=== PATIENT | male | born 1950 | race Caucasian/White ===

== ENCOUNTER 2024-11-25 09:26 | Inpatient (IN) | payer MEDICARE, BC ==
--- NOTE | 2024-11-25 09:53 | ED ---
General Adult HPI - General Chief complaint: Recheck/Abnormal Lab/Rx Stated complaint: elevated BP Time Seen by Provider: 11/25/24 09:30 Source: patient, family, RN notes reviewed, old records reviewed Mode of arrival: ambulatory Limitations: altered mental status - History of Present Illness Initial comments: This is a 73-year-old male who presents to the emergency department stating that he has not seen a doctor in a few years. Patient states he got up this morning felt a little weak and so his took his blood pressure was 250/117 so he decided to come to the emergency department. Patient denies a headache patient denies any numbness or focal weakness. Patient denies chest pain patient denies shortness of breath or difficulty breathing. Patient Nu[place] any recent fever chills or cough. Patient states he has been urinating quite a bit lately which has some concern. Patient also states he felt like he was a little constipated today even though he had a bowel movement yesterday. - Related Data Home Medications Medication Instructions Recorded Confirmed No Known Home Medications 11/25/24 11/25/24 Allergies Allergy/AdvReac Type Severity Reaction Status Date / Time Penicillins Allergy Rash/Hives Verified 11/25/24 10:00 Review of Systems ROS Statement: Those systems with pertinent positive or pertinent negative responses have been documented in the HPI. ROS Other: All systems not noted in ROS Statement are negative. Past Medical History Past Medical History: Hypertension Additional Past Medical History / Comment(s): kidney stones, Past Surgical History: No Surgical Hx Reported Past Psychological History: No Psychological Hx Reported Smoking Status: Never smoker Past Alcohol Use History: None Reported Past Drug Use History: None Reported General Exam - General Exam Comments Initial Comments: GENERAL: Patient is well-developed and well-nourished. Patient is nontoxic and well- hydrated and is in no acute distress. ENT: Neck is soft and supple. No significant lymphadenopathy is noted. Oropharynx is clear. Moist mucous membranes. Neck has full range of motion without eliciting any pain. EYES: The sclera were anicteric and conjunctiva were pink and moist. Extraocular movements were intact and pupils were equal round and reactive to light. Eyelids were unremarkable. PULMONARY: Unlabored respirations. Good breath sounds bilaterally. No audible rales rhonchi or wheezing was noted. CARDIOVASCULAR: There is a regular rate and rhythm without any murmurs gallops or rubs. ABDOMEN: Soft and nontender with normal bowel sounds. SKIN: Skin is clear with no lesions or rashes and otherwise unremarkable. NEUROLOGIC: Patient is alert and oriented x3. Cranial nerves II through XII are grossly intact. Motor and sensory are also intact. Normal speech, volume and content. Symmetrical smile. MUSCULOSKELETAL: Normal extremities with adequate strength and full range of motion. No lower extremity swelling or edema. No calf tenderness. LYMPHATICS: No significant lymphadenopathy is noted PSYCHIATRIC: Normal psychiatric evaluation. Limitations: altered mental status Course Vital Signs 11/25/24 11/25/24 11/25/24 09:30 10:38 10:42 Temperature 97.6 F Pulse Rate 63 75 64 Respiratory 18 18 Rate Blood Pressure 250/124 256/120 O2 Sat by Pulse 98 96 98 Oximetry 11/25/24 11/25/24 11/25/24 10:48 10:58 11:22 Temperature Pulse Rate 63 63 62 Respiratory 18 18 18 Rate Blood Pressure 236/106 248/120 212/97 O2 Sat by Pulse 97 97 96 Oximetry 11/25/24 11/25/24 12:18 12:37 Temperature 97.8 F Pulse Rate 69 Respiratory 18 Rate Blood Pressure 240/134 193/100 O2 Sat by Pulse 99 Oximetry Medical Decision Making - Medical Decision Making EKG is interpreted by myself. EKG shows sinus rhythm at 64 bpm VA interval 199 QRS is 101 QT interval is 426 QTc is 436. Patient's EKG shows no ST segment el evation or depression. Was pt. sent in by a medical professional or institution (, PA, FIRMWARE TEST ENGINEER, urgent care, hospital, or senior living...) When possible be specific @ -No Did you speak to anyone other than the patient for history (EMS, parent, family, police, friend...)? What history was obtained from this source @ -No Did you review nursing and triage notes (agree or disagree)? Why? @ -I reviewed and agree with nursing and triage notes Were old charts reviewed (outside hosp., previous admission, EMS record, old EKG, old radiological studies, urgent care reports/EKG's, senior living records)? Report findings @ -No old charts were reviewed Differential Diagnosis? @ -Differential Weakness: Hypoglycemia, shock, sepsis, hyponatremia, anemia, infection, VT, ETOH, adverse medicine reaction, overdose, stroke, this is not meant to be an all-inclusive list. EKG interpreted by me (3pts min.). @ -As above X-rays interpreted by me (1pt min.). @ -Chest x-ray shows no acute abnormality CT interpreted by me (1pt min.). @ -CT of the abdomen pelvis shows a small kidney stone with some hydronephrosis and hydroureter on the left. U/S interpreted by me (1pt. min.). @ -None done What testing was considered but not performed or refused? (CT, X-rays, U/S, labs)? Why? @ -None What meds were considered but not given or refused? Why? @ -None Did you discuss the management of the patient with other professionals (professionals i.e. , PA, FIRMWARE TEST ENGINEER, lab, RT, psych nurse, social insurance specialist, small arms repairer, teacher, bsa/aml compliance officer, field case manager)? Give summary @ -[facility] the patient wrote admitting orders Was smoking cessation discussed for >3mins.? @ -No Was critical care preformed (if so, how long)? @ -No Were there social determinants of health that impacted care today? How? (Homelessness, low income, unemployed, alcoholism, drug addiction, transportation, low edu. Level, literacy, decrease access to med. care, shelter, rehab)? @ -No Was there de-escalation of care discussed even if they declined (Discuss DNR or withdrawal of care, Hospice)? DNR status @ -No What co-morbidities impacted this encounter? (DM, HTN, Smoking, COPD, CAD, C ancer, CVA, ARF, Chemo, Hep., AIDS, mental health diagnosis, sleep apnea, morbid obesity)? @ -None Was patient admitted / discharged? Hospital course, mention meds given and route, prescriptions, significant lab abnormalities, going to OR and other pertinent info. @ -Patient's blood pressure was significantly elevated I gave the patient labetalol 20 mg and then labetalol 40 mg and finally hydralazine 20 mg. Patient's blood pressure came down to a systolic blood pressure about 195 and patient will be admitted for uncontrolled hypertension and a kidney stone Undiagnosed new problem with uncertain prognosis? @ -No Drug Therapy requiring intensive monitoring for toxicity (Heparin, Nitro, Insuli n, Cardizem)? @ -No Were any procedures done? @ -No Diagnosis/symptom? @ -Uncontrolled hypertension Acute, or Chronic, or Acute on Chronic? @ -Acute Uncomplicated (without systemic symptoms) or Complicated (systemic symptoms)? @ -Complicated Side effects of treatment? @ -No Exacerbation, Progression, or Severe Exacerbation? @ -No Poses a threat to life or bodily function? How? (Chest pain, USA, VT, pneumonia, PE, COPD, DKA, ARF, appy, cholecystitis, CVA, Diverticulitis, Homicidal, Suicidal, threat to staff... and all critical care pts) @ -Yes this can lead to significant endorgan dysfunction such as a stroke Diagnosis/symptom? @ -Kidney stone with hydronephrosis Acute, or Chronic, or Acute on Chronic? @ -Acute Uncomplicated (without systemic symptoms) or Complicated (systemic symptoms)? @ -Complicated Side effects of treatment? @ -None Exacerbation, Progression, or Severe Exacerbation] @ -No Poses a threat to life or bodily function? @ -No - Lab Data Result diagrams: 11/25/24 09:57 11/25/24 09:57 Lab Results 11/25/24 11/25/24 11/25/24 Range/Units 09:57 09:57 09:57 WBC 11.3 H (3.8-10.6) k/uL RBC 6.15 H (4.30-5.90) m/uL Hgb 18.5 H (13.0-17.5) gm/dL Hct 53.9 H (39.0-53.0) % MCV 87.7 (80.0-100.0) fL MCH 30.1 (25.0-35.0) pg MCHC 34.3 (31.0-37.0) g/dL RDW 13.6 (11.5-15.5) % Plt Count 166 (150-450) k/uL MPV 7.9 Neutrophils % 91 % Lymphocytes % 6 % Monocytes % 2 % Eosinophils % 0 % Basophils % 0 % Neutrophils # 10.2 H (1.3-7.7) k/uL Lymphocytes # 0.7 L (1.0-4.8) k/uL Monocytes # 0.3 (0-1.0) k/uL Eosinophils # 0.0 (0-0.7) k/uL Basophils # 0.0 (0-0.2) k/uL PT 10.7 (10.0-12.5) sec INR 1.0 (<1.2) APTT 20.4 L (22.0-30.0) sec Sodium (137-145) mmol/L Potassium (3.5-5.1) mmol/L Chloride (98-107) mmol/L Carbon Dioxide (22-30) mmol/L Anion Gap mmol/L BUN (9-20) mg/dL Creatinine (0.66-1.25) mg/dL Est GFR (CKD-EPI)AfAm (>60 ml/min/1.73 sqM) Est GFR (CKD-EPI)NonAf (>60 ml/min/1.73 sqM) Glucose (74-99) mg/dL Calcium (8.4-10.2) mg/dL Magnesium (1.6-2.3) mg/dL Total Bilirubin (0.2-1.3) mg/dL AST (17-59) U/L ALT (4-49) U/L Alkaline Phosphatase (38-126) U/L Troponin I (0.000-0.034) ng/mL Total Protein (6.3-8.2) g/dL Albumin (3.5-5.0) g/dL Urine Color Yellow Urine Appearance Cloudy (Clear) Urine pH 7.5 (5.0-8.0) Ur Specific [place] 1.009 (1.001-1.035) Urine Protein 2+ H (Negative) Urine Glucose (UA) 3+ H (Negative) Urine Ketones Negative (Negative) Urine Blood Large H (Negative) Urine Nitrite Negative (Negative) Urine Bilirubin Negative (Negative) Urine Urobilinogen <2.0 (<2.0) mg/dL Ur Leukocyte Esterase Negative (Negative) Urine RBC >182 H (0-5) /hpf Urine WBC 1 (0-5) /hpf 11/25/24 11/25/24 Range/Units 09:57 09:57 WBC (3.8-10.6) k/uL RBC (4.30-5.90) m/uL Hgb (13.0-17.5) gm/dL Hct (39.0-53.0) % MCV (80.0-100.0) fL MCH (25.0-35.0) pg MCHC (31.0-37.0) g/dL RDW (11.5-15.5) % Plt Count (150-450) k/uL MPV Neutrophils % % Lymphocytes % % Monocytes % % Eosinophils % % Basophils % % Neutrophils # (1.3-7.7) k/uL Lymphocytes # (1.0-4.8) k/uL Monocytes # (0-1.0) k/uL Eosinophils # (0-0.7) k/uL Basophils # (0-0.2) k/uL PT (10.0-12.5) sec INR (<1.2) APTT (22.0-30.0) sec Sodium 138 (137-145) mmol/L Potassium 4.3 (3.5-5.1) mmol/L Chloride 101 (98-107) mmol/L Carbon Dioxide 25 (22-30) mmol/L Anion Gap 12 mmol/L BUN 21 H (9-20) mg/dL Creatinine 1.09 (0.66-1.25) mg/dL Est GFR (CKD-EPI)AfAm 78 (>60 ml/min/1.73 sqM) Est GFR (CKD-EPI)NonAf 68 (>60 ml/min/1.73 sqM) Glucose 207 H (74-99) mg/dL Calcium 9.9 (8.4-10.2) mg/dL Magnesium 2.1 (1.6-2.3) mg/dL Total Bilirubin 1.4 H (0.2-1.3) mg/dL AST 25 (17-59) U/L ALT 22 (4-49) U/L Alkaline Phosphatase 86 (38-126) U/L Troponin I <0.012 (0.000-0.034) ng/mL Total Protein 7.6 (6.3-8.2) g/dL Albumin 4.8 (3.5-5.0) g/dL Urine Color Urine Appearance (Clear) Urine pH (5.0-8.0) Ur Specific [place] (1.001-1.035) Urine Protein (Negative) Urine Glucose (UA) (Negative) Urine Ketones (Negative) Urine Blood (Negative) Urine Nitrite (Negative) Urine Bilirubin (Negative) Urine Urobilinogen (<2.0) mg/dL Ur Leukocyte Esterase (Negative) Urine RBC (0-5) /hpf Urine WBC (0-5) /hpf Disposition Clinical Impression: Uncontrolled hypertension, Kidney stone on left side Disposition: ADMITTED IP TO THIS HOSP Referrals: None,Stated [Primary Care Provider] - 1-2 days Time of Disposition: 13:46
[2024-11-25 10:09] LABS: Basophils % (A) 0 %; Eosinophils % (A) 0 %; HCT 53.9 % (39.0-53.0); HGB 18.5 gm/dL (13.0-17.5); Lymphocytes # (A) 0.7 k/uL (1.0-4.8); Lymphocytes % (A) 6 %; MCH 30.1 pg (25.0-35.0); MCHC 34.3 g/dL (31.0-37.0); MCV 87.7 fL (80.0-100.0); Mean Platelet Volume 7.9; Monocytes # (A) 0.3 k/uL (0-1.0); Monocytes % (A) 2 %; Neutrophils # (A) 10.2 k/uL (1.3-7.7); Neutrophils % (A) 91 %; Platelet Count 166 k/uL (150-450); RBC 6.15 m/uL (4.30-5.90); RDW 13.6 % (11.5-15.5); WBC 11.3 k/uL (3.8-10.6)
[2024-11-25 10:20] LABS: Appearance,Urine Cloudy (Clear); Bilirubin,Urine Negative (Negative); Blood,Urine Large (Negative); Color,Urine Yellow; Glucose,Urine (UA) 3+ (Negative); Ketones,Urine Negative (Negative); Leukocyte Esterase,Urine Negative (Negative); Nitrite,Urine Negative (Negative); PH, Urine 7.5 (5.0-8.0); Protein,Urine 2+ (Negative); RBC,Urine >182 /hpf (0-5); Specific Gravity,Urine 1.009 (1.001-1.035); Urobilinogen,Urine <2.0 mg/dL (<2.0); WBC,Urine 1 /hpf (0-5)
[2024-11-25 10:29] LABS: ALT 22 U/L (4-49); African American GFR (CKD) 78 (>60 ml/min/1.73 sqM); Albumin 4.8 g/dL (3.5-5.0); Anion Gap 12 mmol/L; Blood Urea Nitrogen 21 mg/dL (9-20); Calcium 9.9 mg/dL (8.4-10.2); Carbon Dioxide 25 mmol/L (22-30); Chloride 101 mmol/L (98-107); Glucose 207 mg/dL (74-99); Non-African American GFR(CKD) 68 (>60 ml/min/1.73 sqM); Prothrombin Time 10.7 sec (10.0-12.5); Sodium 138 mmol/L (137-145); Total Bilirubin 1.4 mg/dL (0.2-1.3); Total Protein 7.6 g/dL (6.3-8.2)
[2024-11-25] MEDS: LABETALOL 5 MG/ML VIAL MDV IVP STA ×3 (10:43→11:10)
[2024-11-25 10:44] LABS: AST 25 U/L (17-59); Alkaline Phosphatase 86 U/L (38-126); Magnesium 2.1 mg/dL (1.6-2.3); Potassium 4.3 mmol/L (3.5-5.1)
[2024-11-25] MEDS: SODIUM CHLORIDE 0.9% 500 ML 500 ML IV STA (10:44)
[2024-11-25 10:48] LABS: Partial Thromboplastin Time 20.4 sec (22.0-30.0)
--- NOTE | 2024-11-25 10:50 | XR ---
EXAMINATION TYPE: XR chest 2V DATE OF EXAM: 11/25/2024 10:41 AM COMPARISON: None. CLINICAL INDICATION: Male, 73 years old with history of Chest Pain, TECHNIQUE: XR chest 2V view(s) obtained. FINDINGS: The heart size is normal. The pulmonary vasculature is normal. The lungs are clear. IMPRESSION: 1. No acute pulmonary process. [facility], , 11/25/2024 10:48 AM
--- NOTE | 2024-11-25 10:53 | XR ---
EXAMINATION TYPE: XR KUB DATE OF EXAM: 11/25/2024 10:41 AM COMPARISON: None. CLINICAL INDICATION: Male, 73 years old with history of Abdominal pain, TECHNIQUE: XR KUB view(s) obtained. FINDINGS: There is a normal bowel gas pattern. Psoas margins are normal. No organomegaly is present. No suspicious calcifications are evident. IMPRESSION: 1. Unremarkable Abdomen [facility], , 11/25/2024 10:51 AM
[2024-11-25] MEDS: hydrALAZINE HCL 20 MG/ML 1 ML VIAL IVP STA ×2 (12:20→14:58)
--- NOTE | 2024-11-25 12:56 | CT ---
EXAMINATION TYPE: CT abdomen pelvis w con DATE OF EXAM: 11/25/2024 COMPARISON: NONE CLINICAL INDICATION: Male, 73 years old with history of Hematuria, Hematuria, abdominal pain, TECHNIQUE: CT scan of the abdomen and pelvis is performed with IV Contrast, patient injected with 100 ml mL of I sovue 300., (none if empty) Oral contrast used: without Oral Contrast (none if empty) CT DLP: 787.8 mGycm, Automated exposure control for dose reduction was used. FINDINGS: LUNG BASES: No significant abnormality is appreciated. LIVER/GB: Liver is heterogeneously hypodense suggesting diffuse fatty infiltrative hepatocellular dis ease. PANCREAS: No significant abnormality is seen. SPLEEN: No significant abnormality is seen. ADRENALS: No significant abnormality is seen. KIDNEYS: There is a 2 mm proximal left ureter calculus axial image 51. There is symmetric cortical up take and excretion without right-sided hydronephrosis. There is minimal to mild left-sided hydronephr osis. There are 2 simple appearing thin-walled cysts in the upper pole right kidney which do not requ ignacio follow-up. There is mild left-sided perinephric fluid which is nonspecific finding. BOWEL: No significant abnormality is seen. PROSTATE/SEMINAL VESICLES: Enlarged prostate consistent with BPH is present. LYMPH NODES: No greater than 1cm abdominal or pelvic lymph nodes are appreciated. OSSEOUS STRUCTURES: There is mild to moderate chronic compression type fracture at T8 level and mild chronic compression type fracture at T7 level. OTHER: No significant additional abnormality is seen. IMPRESSION: There is a 2 mm calculus in proximal left ureter not causing delayed excretion but causin g mild to minimal left-sided hydronephrosis. [facility], , 11/25/2024 12:54 PM
[2024-11-25] MEDS: SODIUM CHLORIDE 0.9% 1,000 ML IV ONE (14:58)
[2024-11-25] MEDS ORDERED: HYDROmorphone 0.5 MG/0.5 ML SYRINGE IVP PRN (16:41)
[2024-11-25] MEDS ORDERED: ALPRAZolam 0.25 MG TAB PO PRN (16:41)
[2024-11-25] MEDS: amLODIPine 10 MG TAB PO SCH (17:57)
[2024-11-25] MEDS: HYDROcodone/APAP 5-325MG 1 EACH TAB PO PRN (17:57)
[2024-11-25] MEDS: METOPROLOL TARTRATE 25 MG TAB PO SCH (17:57)
[2024-11-25] MEDS: hydrALAZINE HCL 20 MG/ML 1 ML VIAL IVP PRN (20:45)
[2024-11-25] MEDS: HEPARIN SODIUM,PORCINE 5,000 UNIT/ML 1 ML VIAL SQ SCH (20:45)
--- NOTE | 2024-11-25 22:44 | HP ---
HISTORY AND PHYSICAL CHIEF COMPLAINT: Hypertension as well as weakness and right-sided kidney pain. HISTORY OF PRESENT ILLNESS: This is a 73-year-old gentleman with a past medical history of hypertension, kidney stones, who has not seen any physician for quite sometime. The patient is noncompliant, and this morning, the patient blood pressure was around 250/117, and the patient was complaining of right-sided abdominal pain. The patient came to [facility]. The patient was found to have hematuria, and the patient was admitted for further evaluation and treatment. An x-ray KUB was unremarkable. The CT of the abdomen and pelvis showed 2 mm calculus in the proximal left ureter with minimal left- sided hydronephrosis. There is no history of any fever, rigors, or chills at this time. PAST MEDICAL HISTORY: Hypertension, nephrolithiasis, kidney stones. MEDICATIONS: None. ALLERGIES: Penicillin. FAMILY HISTORY: No history of heart disease or strokes in the family. SOCIAL HISTORY: No history of smoking or alcohol. REVIEW OF SYSTEMS: Fourteen-point review of systems negative except as mentioned earlier. PHYSICAL EXAMINATION: VITAL SIGNS: Pulse is 82, blood pressure 180/91, respirations 18. HEENT: Conjunctivae normal. NECK: No JVD. CARDIOVASCULAR: S1, S2. RESPIRATORY: Breath sounds diminished at the bases. A few scattered rhonchi. ABDOMEN: Soft, mild diffuse tenderness present. No guarding noted. No masses. LEGS: No edema. NERVOUS SYSTEM: Nonfocal. LABORATORY DATA: Reviewed. ASSESSMENT: 1. Accelerated hypertension. 2. Hypertensive urgency. 3. Abdominal pain with left ureteric calculi with some mild hydronephrosis and hematuria. 4. Polycythemia. 5. Elevated WBC. 6. History of noncompliance. RECOMMENDATIONS: This is a 73-year-old gentleman, who presented with multiple complex medical issues. We will monitor the patient closely. The patient has received multiple doses of labetalol and hydralazine. I would initiate Norvasc and beta blockers. I will continue to monitor. Also, recommended Cardiology evaluation. Monitor blood sugars closely. elevated blood glucoses in the outpatient setting. Symptomatic treatment for the pain also will be provided. Prognosis may be guarded because of multiple complex medical issues. Further recommendations to follow. See orders for details. MMODL / IJN: [id number] / MTDD
[2024-11-26] MEDS: PANTOPRAZOLE 40 MG TABLET PO SCH (06:09)
[2024-11-26 07:15] LABS: Basophils # (A) 0.01 10*3/uL (0.00-0.10); Basophils % (A) 0.1 %; HCT 52.7 % (39.6-50.0); HGB 17.6 g/dL (13.0-17.0); Lymphocytes # (A) 0.54 10*3/uL (0.90-5.00); MCH 29.5 pg (27.0-32.0); MCHC 33.4 g/dL (32.0-37.0); MCV 88.4 fL (80.0-97.0); Mean Platelet Volume 10.7 fL (9.5-12.2); Monocytes # (A) 0.46 10*3/uL (0.20-1.00); Monocytes % (A) 3.4 %; Neutrophils # (A) 12.39 10*3/uL (1.80-7.70); Neutrophils % (A) 91.8 %; Platelet Count 162 10*3/uL (140-440); RBC 5.96 10*6/uL (4.40-5.60); RDW 13.9 % (11.5-14.5)
[2024-11-26 07:30] LABS: ALT 17 U/L (4-49); AST 20 U/L (17-59); African American GFR (CKD) 55 (>60 ml/min/1.73 sqM); Albumin 4.3 g/dL (3.5-5.0); Alkaline Phosphatase 59 U/L (38-126); Anion Gap 9 mmol/L; Blood Urea Nitrogen 26 mg/dL (9-20); Calcium 9.7 mg/dL (8.4-10.2); Carbon Dioxide 21 mmol/L (22-30); Chloride 105 mmol/L (98-107); Glucose 172 mg/dL (74-99); Non-African American GFR(CKD) 47 (>60 ml/min/1.73 sqM); Potassium 4.1 mmol/L (3.5-5.1); Sodium 135 mmol/L (137-145); Total Bilirubin 1.2 mg/dL (0.2-1.3); Total Protein 6.6 g/dL (6.3-8.2)
[2024-11-26] MEDS: hydrALAZINE HCL 25 MG TAB PO SCH (09:06)
[2024-11-26] MEDS: carvediloL 12.5 MG TAB PO SCH (09:06)
--- NOTE | 2024-11-26 10:54 | CA ---
Transthoracic Echo Report Name: Nate Almaraz Age: 73 Gender: M : 1950 Exam Date: 11/26/2024 07:54 Exam Location: [facility] Ht (in): 62 Wt (lb): 140 Ordering Physician: Maximino Swain MD Attending/Referring Phys: Roller Repairer Angela Taylor RDCS Procedure CPT: Indications: HTN Cardiac Hx: Technical Quality: Good Contrast 1: Total Dose (mL): Contrast 2: Total Dose (mL): MEASUREMENTS (Male / Female) Normal Values 2D ECHO LV Diastolic Diameter PLAX 4.5 cm 4.2 - 5.9 / 3.9 - 5.3 cm LV Systolic Diameter PLAX 3.0 cm IVS Diastolic Thickness 1.1 cm 0.6 - 1.0 / 0.6 - 0.9 cm LVPW Diastolic Thickness 1.2 cm 0.6 - 1.0 / 0.6 - 0.9 cm LV Relative Wall Thickness 0.5 LVOT Diameter 2.2 cm LV Diastolic Volume MOD BP 74.5 cm??? 67 - 155 / 56 - 104 cm??? LV Systolic Volume MOD BP 31.4 cm??? 22 - 58 / 19 - 49 cm??? LV Ejection Fraction MOD BP 57.8 % >= 55 % LV Cardiac Index MOD BP 1996.8 cm???/min???m??? LV Diastolic Volume MOD 4C 77.0 cm??? LV Systolic Volume MOD 4C 31.2 cm??? LV Ejection Fraction MOD 4C 59.5 % LV Cardiac Index MOD 4C 2125.8 cm???/min???m??? LV Diastolic Length 4C 7.8 cm LV Systolic Length 4C 6.3 cm LV Diastolic Volume MOD 2C 71.8 cm??? LV Systolic Volume MOD 2C 27.9 cm??? LV Ejection Fraction MOD 2C 61.1 % LV Cardiac Index MOD 2C 2036.1 cm???/min???m??? LV Diastolic Length 2C 7.6 cm LV Systolic Length 2C 5.5 cm LA Volume 42.2 cm??? 18 - 58 / 22 - 52 cm??? LA Volume Index 25.1 cm???/m??? 16 - 28 cm???/m??? DOPPLER AV Peak Velocity 142.8 cm/s AV Peak Gradient 8.2 mmHg AV Mean Velocity 90.6 cm/s AV Mean Gradient 3.8 mmHg AV Velocity Time Integral 23.6 cm LVOT Peak Velocity 111.1 cm/s LVOT Peak Gradient 4.9 mmHg LVOT Velocity Time Integral 20.0 cm LVOT Stroke Volume 77.3 cm??? LVOT Stroke Volume Index 47.1 ml/m??? LVOT Cardiac Index 3588.7 cm???/min???m??? AV Area Cont Eq vti 3.3 cm??? AV Area Cont Eq pk 3.0 cm??? MV Area PHT 3.1 cm??? Mitral E Point Velocity 55.0 cm/s Mitral A Point Velocity 87.7 cm/s Mitral E to A Ratio 0.6 MV Deceleration Time 245.7 ms PV Peak Velocity 102.6 cm/s PV Peak Gradient 4.2 mmHg FINDINGS Left Ventricle Left ventricular ejection fraction is estimated at 55-60 %. Mildly increased septal wall thickness. Left ventricular cavity size normal. No obvious regional wall motion abnormalities. Right Ventricle Normal right ventricular size and function. Unable to estimate the right ventricular systolic pressure. Right Atrium Normal right atrial size. Left Atrium Normal left atrial size. Mitral Valve Structurally normal mitral valve. No evidence for mitral valve prolapse. No mitral stenosis. Mild MR Aortic Valve Trileaflet aortic valve. No aortic valve stenosis or regurgitation. Tricuspid Valve Structurally normal tricuspid valve. No tricuspid stenosis. Trace tricuspid regurgitation. Pulmonic Valve Structurally normal pulmonic valve. No pulmonic stenosis. Trace pulmonic regurgitation. Pericardium No pericardial effusion. Aorta Normal size aortic root and proximal ascending aorta. CONCLUSIONS Normal LV systolic function No significant valvular abnormalities No pericardial effusion Previewed by: Dr. Leonel Kaufman MD (Electronically Signed) Final Date: 26 November 2024 10:53
--- NOTE | 2024-11-26 14:14 | P.CRDCN ---
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 Patient states that it has been a while since he has seen a primary care physician. He had told his that he was not feeling well and he thought it was from a kidney stone and his checked his blood pressure and found it to be 250/117. He states he had high blood pressure in the past but he lost about 30 pounds and was taken off his medications. He does have his blood pressure checked at home periodically and it is usually about 155/85. He denies having any chest pain, no lightheadedness or dizziness no headache no nausea. He denies palpitations, no lower extremity edema. His abdominal pain started on Monday morning about 3 in the morning. He he is normally quite active. He denies any chest pain or shortness of breath with activity. He smokes marijuana but quit smoking cigarettes. He denies caffeine use, no alcohol use. He states he has had a little bit of blood in his urine but no blood in his stools. No history of stroke or seizures. Patient is status post 2 doses of IV labetalol, oral Lopressor, hydralazine IV push x 2. -EKG: Sinus rhythm with no acute ST-T wave changes. -Chest x-ray: No acute pulmonary process. -KUB: Unremarkable. -CT abdomen pelvis with contrast: 2 mm calculus in the proximal left ureter not causing delayed excretion but causing mild to minimal left sided hydronephrosis -Laboratory studies: WBC 13.5, hemoglobin 17.6, initial BUN 20 1 repeat 26, initial creatinine 1.09 and repeat 1.46. Troponin negative x 1. Urinalysis revealed large amount of blood. -Home cardiac medications: None Review Of Systems: At the time of my exam: CONSTITUTIONAL: Denies fever or chills. HEENT: Denies blurred vision, vision changes, or eye pain. Denies hemoptysis CARDIOVASCULAR: Denies chest pain. Denies orthopnea. Denies PND. Denies palpitations RESPIRATORY: Denies shortness of breath. GASTROINTESTINAL: Denies abdominal pain. Denies nausea or vomiting. HEMATOLOGIC: Denies bleeding disorders. GENITOURINARY: Denies any blood in urine. SKIN: Denies puritis. Denies rash. Physical examination: Gen: This is 73-year-old male in no acute distress VS: reviewed HEENT: Head is atraumatic, normocephalic. Pupils equal, round. Sclerae is anicteric. NECK: Supple. No JVD. LUNGS: Clear to auscultation. No wheezes or rhonchi. No intercostal retractions. HEART: Regular rate and rhythm. No murmur. ABDOMEN: Soft No tenderness. EXTREMITIES: No pedal edema. No calf tenderness. NEUROLOGICAL: Patient is awake, alert and oriented x3. Assessment: Hypertensive emergency Abdominal pain secondary to kidney stone Acute kidney injury Leukocytosis Polycythemia Plan: Discontinue metoprolol Start patient on Coreg 12.5 mg twice daily Start patient on hydralazine 25 mg 3 times daily Patient has been started on amlodipine 10 mg by attending Will consider adding HEBER inhibitor or hydrochlorothiazide if renal function improves Obtain 2-D echocardiogram and Doppler study to assess cardiac structure and function If leukocytosis and polycythemia do not improve, would recommend consult with hematology Repeat blood work tomorrow Reports abdominal discomfort further recommendations to follow based upon clinical course Thank you kindly for this consultation. Nurse practitioner note has been reviewed, I agree with documented findings and plan of care. Patient was seen and examined. Past Medical History Past Medical History: Hypertension Additional Past Medical History / Comment(s): kidney stones, History of Any Multi-Drug Resistant Organisms: None Reported Past Surgical History: No Surgical Hx Reported Past Anesthesia/Blood Transfusion Reactions: No Reported Reaction Past Psychological History: No Psychological Hx Reported Smoking Status: Never smoker Past Alcohol Use History: None Reported Past Drug Use History: None Reported - Past Family History Father Family Medical History: Liver Disease Medications and Allergies Home Medications Medication Instructions Recorded Confirmed Type No Known Home Medications 11/25/24 11/25/24 History Allergies Allergy/AdvReac Type Severity Reaction Status Date / Time Penicillins Allergy Rash/Hives Verified 11/25/24 10:00 Physical Exam Vitals: Vital Signs Temp Pulse Pulse Resp BP BP Pulse Ox 11/26/24 03:05 98.9 F 78 199/91 94 L 11/26/24 01:10 77 18 11/25/24 23:24 98.6 F 77 156/70 94 L 11/25/24 20:00 98.7 F 75 18 162/74 96 11/25/24 18:00 95 18 164/100 95 11/25/24 17:18 98.1 F 79 18 177/105 96 11/25/24 16:21 98.1 F 82 18 180/91 96 11/25/24 15:40 60 18 165/122 96 11/25/24 14:52 98.1 F 64 18 204/106 98 11/25/24 14:15 71 18 188/104 96 11/25/24 12:37 193/100 11/25/24 12:18 97.8 F 69 18 240/134 99 11/25/24 11:22 62 18 212/97 96 11/25/24 10:58 63 18 248/120 97 11/25/24 10:48 63 18 236/106 97 11/25/24 10:42 64 18 98 11/25/24 10:38 75 256/120 96 11/25/24 09:30 97.6 F 63 18 250/124 98 Intake and Output 11/25/24 11/26/24 11/26/24 22:59 06:59 14:59 Intake Total 480 Output Total 300 Balance 480 -300 Intake: Oral 480 Output: Urine 300 Other: # Voids 1 Weight 63.503 kg 65 kg Results 11/26/24 06:12 11/26/24 06:12 Cardiac Enzymes 11/25/24 11/25/24 11/26/24 Range/Units 09:57 09:57 06:12 AST 25 20 (17-59) U/L Troponin I <0.012 (0.000-0.034) ng/mL Coagulation 11/25/24 Range/Units 09:57 PT 10.7 (10.0-12.5) sec APTT 20.4 L (22.0-30.0) sec CBC 11/25/24 11/26/24 Range/Units 09:57 06:12 WBC 11.3 H 13.50 H (3.8-10.6) k/uL RBC 6.15 H 5.96 H (4.30-5.90) m/uL Hgb 18.5 H 17.6 H (13.0-17.5) gm/dL Hct 53.9 H 52.7 H (39.0-53.0) % Plt Count 166 162 (150-450) k/uL Comprehensive Metabolic Panel 11/25/24 11/26/24 Range/Units 09:57 06:12 Sodium 138 135 L (137-145) mmol/L Potassium 4.3 4.1 (3.5-5.1) mmol/L Chloride 101 105 (98-107) mmol/L Carbon Dioxide 25 21 L (22-30) mmol/L BUN 21 H 26 H (9-20) mg/dL Creatinine 1.09 1.46 H (0.66-1.25) mg/dL Glucose 207 H 172 H (74-99) mg/dL Calcium 9.9 9.7 (8.4-10.2) mg/dL AST 25 20 (17-59) U/L ALT 22 17 (4-49) U/L Alkaline Phosphatase 86 59 (38-126) U/L Total Protein 7.6 6.6 (6.3-8.2) g/dL Albumin 4.8 4.3 (3.5-5.0) g/dL Current Medications Generic Name Dose Route Start Last Admin Trade Name Freq PRN Reason Stop Dose Admin Hydrocodone Bitart/Acetaminophen 1 each 11/25/24 16:41 11/25/24 23:03 Hydrocodone/Apap 5-325mg 1 Each Tab PO 1 each Q6HR PRN Administration Pain Alprazolam 0.25 mg 11/25/24 16:41 Alprazolam 0.25 Mg Tab PO TID PRN Anxiety Amlodipine Besylate 10 mg 11/25/24 17:00 11/25/24 17:57 Amlodipine 10 Mg Tab PO 10 mg DAILY KENDALL Administration Heparin Sodium (Porcine) 5,000 unit 11/25/24 21:00 11/25/24 20:45 Heparin Sodium,Porcine 5,000 Unit/Ml 1 Ml Vial SQ 5,000 unit Q12HR KENDALL Administration Hydralazine HCl 10 mg 11/25/24 16:41 11/26/24 02:58 Hydralazine Hcl 20 Mg/Ml 1 Ml Vial IVP 10 mg Q4HR PRN Administration Blood Pressure - High Hydromorphone HCl 0.5 mg 11/25/24 16:41 Hydromorphone 0.5 Mg/0.5 Ml Syringe IVP Q4HR PRN Severe Pain (Scale 7 to 10) Metoprolol Tartrate 25 mg 11/25/24 17:30 11/25/24 17:57 Metoprolol Tartrate 25 Mg Tab PO 25 mg BID KENDALL Administration Pantoprazole Sodium 40 mg 11/26/24 07:30 11/26/24 06:09 Pantoprazole 40 Mg Tablet PO 40 mg [id number] KENDALL Administration Intake and Output 11/25/24 11/26/24 11/26/24 22:59 06:59 14:59 Intake Total 480 Output Total 300 Balance 480 -300 Intake: Oral 480 Output: Urine 300 Other: # Voids 1 Weight 63.503 kg 65 kg 11/26/24 06:12 11/26/24 06:12
--- NOTE | 2024-11-26 16:42 | PN ---
PROGRESS NOTE DATE OF SERVICE: 11/26/2024 SUBJECTIVE: This is a 73-year-old gentleman, who was admitted with accelerated hypertension, was noncompliant previously. The patient is being closely monitored. No chest pain. No palpitation. The patient has hematuria also. OBJECTIVE: VITAL SIGNS: Pulse is 95, blood pressure 180/87, respirations 18. CHEST: A few scattered rhonchi and crackles. ABDOMEN: Soft. NERVOUS SYSTEM: Nonfocal. LABORATORY DATA: Reviewed. ASSESSMENT: 1. Accelerated hypertension. 2. Hypertensive urgency. 3. Abdominal pain with left ureteric calculi with some hydronephrosis and hematuria. 4. Polycythemia. 5. Elevated WBC. 6. History of noncompliance. RECOMMENDATIONS: Recommended to continue current management and continue symptomatic treatment. Repeat labs. Hydralazine p.r.n. Coreg as initiated. Guarded prognosis. Further recommendations to follow. MMODL / IJN: [id number] /
[2024-11-27 06:42] LABS: Basophils # (A) 0.02 10*3/uL (0.00-0.10); Basophils % (A) 0.1 %; HCT 49.4 % (39.6-50.0); HGB 16.9 g/dL (13.0-17.0); Lymphocytes # (A) 1.47 10*3/uL (0.90-5.00); Lymphocytes % (A) 9.7 %; MCH 29.7 pg (27.0-32.0); MCHC 34.2 g/dL (32.0-37.0); MCV 86.8 fL (80.0-97.0); Mean Platelet Volume 10.3 fL (9.5-12.2); Monocytes # (A) 0.71 10*3/uL (0.20-1.00); Monocytes % (A) 4.7 %; Neutrophils # (A) 12.83 10*3/uL (1.80-7.70); Platelet Count 194 10*3/uL (140-440); RBC 5.69 10*6/uL (4.40-5.60); RDW 13.9 % (11.5-14.5)
[2024-11-27 07:01] LABS: African American GFR (CKD) 68 (>60 ml/min/1.73 sqM); Anion Gap 7 mmol/L; Blood Urea Nitrogen 29 mg/dL (9-20); Calcium 9.9 mg/dL (8.4-10.2); Carbon Dioxide 27 mmol/L (22-30); Chloride 101 mmol/L (98-107); Glucose 110 mg/dL (74-99); Non-African American GFR(CKD) 59 (>60 ml/min/1.73 sqM); Potassium 3.7 mmol/L (3.5-5.1); Sodium 135 mmol/L (137-145)
[2024-11-27 10:56] LABS: Chol/HDL Ratio 2.24 Ratio; LDL Cholesterol,Calculated 56.9 mg/dL (0.0-131.0)
[2024-11-27 11:49] VITALS: BP 154/78; PULSE 67; RESP 18; TEMP 97.7
--- NOTE | 2024-11-27 12:18 | P.PN ---
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 Patient states that it has been a while since he has seen a primary care physician. He had told his that he was not feeling well and he thought it was from a kidney stone and his checked his blood pressure and found it to be 250/117. He states he had high blood pressure in t he past but he lost about 30 pounds and was taken off his medications. He does have his blood pressure checked at home periodically and it is usually about 155/85. He denies having any chest pain, no lightheadedness or dizziness no headache no nausea. He denies palpitations, no lower extremity edema. His abdominal pain started on Monday morning about 3 in the morning. He he is normally quite active. He denies any chest pain or shortness of breath with activity. He smokes marijuana but quit smoking cigarettes. He denies caffeine use, no alcohol use. He states he has had a little bit of blood in his urine but no blood in his stools. No history of stroke or seizures. Patient is statu s post 2 doses of IV labetalol, oral Lopressor, hydralazine IV push x 2. -EKG: Sinus rhythm with no acute ST-T wave changes. -Chest x-ray: No acute pulmonary process. -KUB: Unremarkable. -CT abdomen pelvis with contrast: 2 mm calculus in the proximal left ureter not causing delayed excretion but causing mild to minimal left sided hydronephrosis -Laboratory studies: WBC 13.5, hemoglobin 17.6, initial BUN 20 1 repeat 26, initial creatinine 1.09 and repeat 1.46. Troponin negative x 1. Urinalysis revealed large amount of blood. -Home cardiac medications: None 11/27 Patient seen and examined. He states he is feeling well. He is anxious to be discharged home. Blood pressure readings are improved but still elevated. Patient has been started on Coreg, hydralazine and amlodipine. Blood pressure running in the 130s to 170s systolic, heart rate is in the 60s and 70s, pulse ox 98% on room air. Repeat blood work reveals WBC 15, hemoglobin 16.9, BUN 29 creatinine 1.23. Echocardiogram reveals EF of 55 to 60%, no significant valvular abnormalities, no pericardial effusion. Results of the echocardiogram reviewed with the patient. Physical examination: Gen: This is 73-year-old male in no acute distress VS: reviewed HEENT: Head is atraumatic, normocephalic. Pupils equal, round. Sclerae is anicteric. NECK: Supple. No JVD. LUNGS: Clear to auscultation. No wheezes or rhonchi. No intercostal retractions. HEART: Regular rate and rhythm. No murmur. ABDOMEN: Soft No tenderness. EXTREMITIES: No pedal edema. No calf tenderness. NEUROLOGICAL: Patient is awake, alert and oriented x3. Assessment: Hypertensive emergency Abdominal pain secondary to kidney stone Acute kidney injury, improved Leukocytosis Polycythemia Plan: Continue patient on Coreg 12.5 mg twice daily, hydralazine 25 mg 3 times daily, amlodipine 10 mg by attending Add hydrochlorothiazide 25 mg daily If leukocytosis and polycythemia do not improve, would recommend consult with hematology which can be done as an outpatient Patient is cleared for discharge from cardiology and may follow-up in the office with Dr. Patino in 1-2 weeks. Nurse practitioner note has been reviewed, I agree with documented findings and plan of care. Patient was seen and examined. Objective - Vital Signs Vital signs: Vital Signs Temp 97.7 F 11/27/24 11:48 Pulse 67 11/27/24 11:48 Resp 18 11/27/24 11:48 BP 154/78 11/27/24 11:48 Pulse Ox 98 11/27/24 11:48 FiO2 Intake & Output 11/26/24 11/27/24 11/27/24 18:59 06:59 18:59 Intake Total 390 Balance 390 Weight 65.1 kg Intake: Intake, IV Titration 150 Amount Sodium Chloride 0.9% 1, 150 000 ml @ 75 mls/hr IV . [id number] ONE Rx#:[id number] Oral 240 Other: # Voids 0 - Labs CBC & Chem 7: 11/27/24 06:25 11/27/24 06:25 Labs: Abnormal Lab Results - Last 24 Hours (Table) 11/27/24 11/27/24 Range/Units 06:25 06:25 WBC 15.10 H (4.50-10.00) 10*3/uL RBC 5.69 H (4.40-5.60) 10*6/uL Immature Gran # 0.07 H (0.00-0.04) 10*3/uL Neutrophils # 12.83 H (1.80-7.70) 10*3/uL Eosinophils # 0.00 L (0.04-0.35) 10*3/uL Sodium 135 L (137-145) mmol/L BUN 29 H (9-20) mg/dL Glucose 110 H (74-99) mg/dL HDL Cholesterol 65.70 H (40.00-60.00) mg/dL
[2024-11-27] MEDS: hydroCHLOROthiazide 25 MG TAB PO SCH (12:31)
[2024-11-27 13:34] VITALS: BMI 26.2
== END 2024-11-27 15:10 | disposition home or self-care (01) | DRG 305 ==
LOC: EC 09:26 → 3SCARD 13:49
PROVIDERS: ADMIT Internal Medicine; ATTEND Internal Medicine
DX: I16.1 Hypertensive emergency (principal); N13.2 Hydronephrosis with renal and ureteral calculous obstruction; I10 Essential (primary) hypertension; I08.1 Rheumatic disorders of both mitral and tricuspid valves; N17.9 Acute kidney failure, unspecified; D75.1 Secondary polycythemia; D72.829 Elevated white blood cell count, unspecified; R31.9 Hematuria, unspecified; Z91.199 Patient's noncompliance with other medical treatment and regimen due to unspecified reason; Z87.442 Personal history of urinary calculi; Z88.0 Allergy status to penicillin
CPT/HCPCS: 36415; 71046; 74018; 74177; 80048; 80053; 80061; 81001; 83036; 83735; 84443; 84484; 85025; 85610; 85730; 93005; 93306; 96361; 96374; 96375; 96376; 99285